=== PATIENT | female | born 1955 | race Caucasian/White ===

== ENCOUNTER 2019-05-18 06:52 | Emergency (ER) | payer MEDICARE, MEDICAID ==
[~2019-05-18] VITALS: Ht 160 cm; Wt 62.1 kg
[~2019-05-18 06:52] MED LIST: CLON0.2T12 PO; GABA300C PO; PHEN100C4 PO; PHEN30TA40 PO
[2019-05-18 07:01] VITALS: BP 141/82
--- NOTE | 2019-05-18 08:01 | NUR ---
wound care/dressing provided.
--- NOTE | 2019-05-18 08:15 | NUR ---
Social service consult requested by ARUNA Shea for possible homelessness. Upon chart review, Pt. is a 63-year-old female who was brought to [facility] ED by [employer]. Pt. is in custody but had wounds and was brought to ED. DOWEL STICKER OPERATOR met with the pt. bedside. [employer] were bedside as well. Pt. states she resides on and off with friends. Pt is in custody due to a warrant for not showing up in court. Pt is alert and oriented x 4. Pt appears disheveled and unkempt. Pt is a heroin user and last used yesterday. Pt denies any suicidal and homicidal ideations and visual/auditory hallucinations at this time. Pt. receives SSI monthly. DOWEL STICKER OPERATOR provided pt with active listening and supportive counseling. Pt was provided with homeless resources/care home resources. Pt will be going back to [facility] under [employer] supervision. Homeless patient waiver form was signed by the pt. and placed in pt's paper chart.
--- NOTE | 2019-05-18 08:34 | NUR ---
pt is medically cleared. discharge to [facility] in stable condition.
== END 2019-05-18 08:36 ==
LOC: ER 06:57
DX: L97.828 Non-pressure chronic ulcer of other part of left lower leg with other specified severity (principal); L98.498 Non-pressure chronic ulcer of skin of other sites with other specified severity; R56.9 Unspecified convulsions; E11.9 Type 2 diabetes mellitus without complications; I10 Essential (primary) hypertension; Z79.899 Other long term (current) drug therapy; Z59.0 Homelessness
CPT/HCPCS: 99283; A6403